=== PATIENT | female | born 1945 | race Caucasian/White ===

== ENCOUNTER → 2020-11-22 | Day surgery (SDC) | payer MEDICARE, OTHER ==
[~2020-11-22] MED LIST: AMLO-186 PO; ATEN50TA PO; CHOL500016 PO; FAMOTIDINE 20 MG/2 ML VIAL ONE; GABA-586 PO; IPRATRPIUM/ALBUTEROL 0.5/2.5MG 3 ML NEBU. NEB PRN; IV RINGERS SOLUTION,LACTATED 1,000 ML IV SCH; LEVO50TA5 PO; LIDOCAINE 2% PF 5 ML VIAL. ONE; LISI-517 PO; LORA0.5T PO; LOVA20TA2 PO; MECL12.582 PO; METF500T16 PO; MIDAZOLAM HCL PF 2 MG/2 ML VIAL. IV ONE; ONDANSETRON PF 4 MG/2 ML VIAL. IV PRN; PROPOFOL 10,000 MCG/ML (20ML) VIAL IV ONE; WARF-31 PO
[2020-11-22 11:51] VITALS: BP 129/75
--- NOTE | 2020-11-27 09:12 | PATHOLOGY ---
[facility] Accession Number: [id number] . 01 Material submitted: . PART A: colon - TRANSVERSE COLON POLYP. Modifiers: transverse PART B: sigmoid colon - SIGMOID COLON X2 BIOPSY. Modifiers: X2 PART C: rectum - RECTAL POLYP . 01 Clinical history: . SCREENING COLONOSCOPY . Frozen section diagnosis: . . /QTP . 02 Diagnosis: A. Colon biopsy, transverse colon polyp: - Tubular adenoma. . B. Colon biopsies, sigmoid colon polyp: - Tubular adenoma. . C. 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 (JP:noris; 11/26/2020) QT 11/26/2020 1925 Local . 02 Comment: There is no high-grade dysplasia or evidence of malignancy. (JPM:noris; 11/26/2020) . 02 Electronically signed: . Massimo Pillai MD, Pathologist NPI- [id number] . 01 Gross description: . A. Received in formalin labeled "Emely Melendez, transverse colon" is a fragment of el-brown soft tissue measuring 0.5 x 0.5 x 0.4 cm. The specimen is submitted entirely in A1. . B. Received in formalin labeled "Melendez, Emely sigmoid colon" are multiple fragments of el-brown soft tissue measuring in aggregate 0.9 x 0.4 x 0.3 cm. The specimen is submitted entirely in B1. . C. Received in formalin labeled "Melendez, Emely rectal polyp " is a fragment of el-brown soft tissue measuring 0.4 x 0.4 x 0.3 cm. The specimen is submitted entirely in C1.([facility] [place]; 11/25/2020) GZA/GZA 11/25/2020 1034 Local . 02 Pathologist provided ICD-10: D12.3, D12.5, K62.1 . 02 CPT . 189959, [id number], [id number] Specimen Comment: A courtesy copy of this report has been sent to [phone], [phone] Specimen Comment: [id number] Specimen Comment: Report sent to / DR MERINO Performed at: 01 [facility] [address], [place] [id number] MD Ej Hurt MD Phone: [phone] Performed at: 02 [facility] [address] [place], [place] [id number] MD Massimo Pillai MD Phone: [phone]
== END | disposition home or self-care (01) ==
LOC: SURG 09:38
PROVIDERS: ATTEND Internal Medicine Gastroenterology
DX: R19.7 Diarrhea, unspecified (principal); K62.5 Hemorrhage of anus and rectum; D12.3 Benign neoplasm of transverse colon; D12.5 Benign neoplasm of sigmoid colon; K62.1 Rectal polyp; M19.90 Unspecified osteoarthritis, unspecified site; E78.00 Pure hypercholesterolemia, unspecified; I10 Essential (primary) hypertension; E11.9 Type 2 diabetes mellitus without complications; K63.89 Other specified diseases of intestine; Z86.010 Personal history of colon polyps; Z85.038 Personal history of other malignant neoplasm of large intestine; Z79.899 Other long term (current) drug therapy; Z79.84 Long term (current) use of oral hypoglycemic drugs; Z98.890 Other specified postprocedural states
CPT/HCPCS: 45380; 45381; 45385; 82947; 88305; J2001; J2704; J3490